=== PATIENT | male | born 2005 | race Caucasian/White ===

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

== ENCOUNTER 2023-02-10 03:16 | Emergency (ER) | payer SELFPAY ==
[~2023-02-10] VITALS: Ht 177.8 cm; Wt 72.6 kg
== END 2023-02-10 03:33 ==
LOC: MED 03:16
DX: S00.81XA Abrasion of other part of head, initial encounter (principal); X58.XXXA Exposure to other specified factors, initial encounter; Y93.89 Activity, other specified; Y92.89 Other specified places as the place of occurrence of the external cause; Y99.8 Other external cause status
CPT/HCPCS: 99283